=== PATIENT | female | born 1990 | race Native Hawaiian/Other Pacific Islander ===

== ENCOUNTER 2019-09-19 06:49 | Outpatient (CLI) | payer OTHER | END 2019-09-19 06:50 | disposition EMS.NT | LOC: EMS 06:49 | PROVIDERS: ATTEND Surgery | DX: S51.852A Open bite of left forearm, initial encounter (principal); S61.552A Open bite of left wrist, initial encounter; W54.0XXA Bitten by dog, initial encounter; Y92.009 Unspecified place in unspecified non-institutional (private) residence as the place of occurrence of the external cause ==